=== PATIENT | female | born 1935 | race Caucasian/White ===

== ENCOUNTER → 2016-12-12 | Outpatient (CLI) | payer OTHER ==
[2014-10-08 08:06] VITALS: BP 138/88
--- NOTE | 2016-12-12 11:06 | RAD ---
HISTORY: Nontraumatic left hip pain Study: Left hip two views, AP pelvis Comparison: None Findings: A single frontal view of the pelvis demonstrates the pelvic ring to be intact. No evidence for acut e cortical disruption or dislocation of the hip can be observed. Frog leg views of the hip fails to demonstrate evidence for fracture or significant joint abnormality. Impression: 1. Negative exam. Reported By:
== END ==
LOC: RAD 10:43
PROVIDERS: ATTEND Specialist
DX: M25.552 Pain in left hip (principal)
CPT/HCPCS: 73501

== ENCOUNTER → 2017-01-06 | Outpatient (CLI) | payer OTHER ==
[2014-10-08 08:06] VITALS: BP 138/88
[2017-01-06 08:03] LABS: BASOPHILS % (AUTO) 0.7 % (0.2-1.0); EOSINOPHILS % (AUTO) 0.8 % (0.9-2.9); HEMATOCRIT 37.3 % (36.0-47.0); HEMOGLOBIN 12.7 g/dL (12.0-16.0); LYMPHOCYTES # (AUTO) 1.4 X10^3/uL (1.3-2.9); LYMPHOCYTES % (AUTO) 26.7 % (21.0-51.0); MEAN CORPUSCULAR HEMOGLOBIN 30.9 pg (27.0-34.0); MEAN CORPUSCULAR HGB CONC 34.1 g/dL (33.0-35.0); MEAN CORPUSCULAR VOLUME 90.5 fL (80.0-100.0); MEAN PLATELET VOLUME 8.5 fL (7.4-11.0); MONOCYTES # (AUTO) 0.4 x10^3/uL (0.3-0.8); NEUTROPHILS # (AUTO) 3.4 x10^3/uL (2.2-4.8); NEUTROPHILS % (AUTO) 63.8 % (42.0-75.0); PLATELET COUNT 156 X10^3/uL (150.0-450.0); RED BLOOD COUNT 4.12 X10^6/uL (3.5-5.4); RED CELL DISTRIBUTION WIDTH 12.9 % (11.6-16.5); WHITE BLOOD COUNT 5.3 X10^3/uL (3.6-10.0)
[2017-01-06 08:27] LABS: ALANINE AMINOTRANSFERASE 33 Units/L (12-78); ALBUMIN 3.6 g/dL (3.4-5.0); ALKALINE PHOSPHATASE 49 Units/L (46-116); AMYLASE 109 Units/L (25-115); ASPARTATE AMINO TRANSFERASE 28 Units/L (15-37); BLOOD UREA NITROGEN 11 mg/dL (7-18); CARBON DIOXIDE 32.8 mmol/L (21-32); CHLORIDE 107 mmol/L (98-107); CREATININE 1.01 mg/dL (0.55-1.02); GLUCOSE 88 mg/dL (65-99); LIPASE 310 Units/L (73-393); SODIUM 143 mmol/L (136-145); TOTAL PROTEIN 7.2 g/dL (6.4-8.2); eGFR BLACK RACES > 60 (>60); eGFR NON BLACK RACES 56 (>60)
== END ==
LOC: LAB 07:35
PROVIDERS: ATTEND Internal Medicine Gastroenterology
DX: R10.13 Epigastric pain (principal); R11.0 Nausea
CPT/HCPCS: 36415; 80053; 82150; 83690; 85025

== ENCOUNTER 2019-01-11 17:18 | Inpatient (IN) ==
[2019-01-11] MEDS ORDERED: VANCOMYCIN HCL 1 GM VIAL 1 G in D5W 250 ML IV 250 ML IV ONE (17:46)
[2019-01-11 18:03] LABS: BASOPHILS % (AUTO) 0.8 % (0.2-1.0); EOSINOPHILS % (AUTO) 0.1 % (0.9-2.9); HEMATOCRIT 33.6 % (36.0-47.0); HEMOGLOBIN 11.6 g/dL (12.0-16.0); LYMPHOCYTES # (AUTO) 1.4 X10^3/uL (1.3-2.9); LYMPHOCYTES % (AUTO) 27.5 % (21.0-51.0); MEAN CORPUSCULAR HGB CONC 34.5 g/dL (33.0-35.0); MEAN CORPUSCULAR VOLUME 89.8 fL (80.0-100.0); MEAN PLATELET VOLUME 8.3 fL (7.4-11.0); MONOCYTES # (AUTO) 0.4 x10^3/uL (0.3-0.8); MONOCYTES % (AUTO) 8.5 % (0.0-13.0); NEUTROPHILS # (AUTO) 3.3 x10^3/uL (2.2-4.8); NEUTROPHILS % (AUTO) 63.1 % (42.0-75.0); PLATELET COUNT 153 X10^3/uL (150.0-450.0); RED BLOOD COUNT 3.74 X10^6/uL (3.5-5.4); RED CELL DISTRIBUTION WIDTH 13.8 % (11.6-16.5); WHITE BLOOD COUNT 5.3 X10^3/uL (3.6-10.0)
[2019-01-11 18:13] VITALS: BMI 17.2
[2019-01-11 18:17] LABS: ALANINE AMINOTRANSFERASE 20 Units/L (12-78); ALBUMIN 3.8 g/dL (3.4-5.0); ALKALINE PHOSPHATASE 59 Units/L (46-116); ASPARTATE AMINO TRANSFERASE 29 Units/L (15-37); BLOOD UREA NITROGEN 15 mg/dL (7-18); CALCIUM 8.9 mg/dL (8.5-10.1); CARBON DIOXIDE 27.3 mmol/L (21-32); CHLORIDE 100 mmol/L (98-107); CREATININE 1.44 mg/dL (0.55-1.02); SODIUM 138 mmol/L (136-145); TOTAL PROTEIN 7.4 g/dL (6.4-8.2); eGFR NON BLACK RACES 37 (>60)
[2019-01-11] MEDS: PROTONIX TAB 40 MG PO SCH (18:34)
[2019-01-11] MEDS: LR 1000 ML IV 1,000 ML IV SCH (18:34)
[2019-01-11] MEDS: GENTAMICIN SULF (OPHTH) AFFEYE SCH ×2 (18:49→22:05)
[2019-01-11] MEDS ORDERED: KLOR-CON PO PRN (19:45)
[2019-01-11] MEDS ORDERED: POTASSIUM CHL 40 MEQ/NS 0.45% 500 ML IV PRN (19:45)
[2019-01-11] MEDS ORDERED: POTASSIUM CHLORIDE LIQ 20 MEQ UDC PO PRN (19:45)
[2019-01-11] MEDS ORDERED: K-RIDER 10 MEQ/NS 100 ML 10 MEQ/100 ML BAG IV PRN (19:45)
[2019-01-11] MEDS ORDERED: K-DUR TAB 20 MEQ PO PRN (19:45)
[2019-01-11] MEDS ORDERED: POTASSIUM CHL 60 MEQ/NS 0.45% 500 ML IV PRN (19:45)
[2019-01-11] MEDS ORDERED: MICRO K EXTEN CAP 10 MEQ PO PRN (19:45)
[2019-01-11] MEDS: COREG TAB 6.25 MG PO SCH (20:16)
[2019-01-11] MEDS: MAGNESIUM SULFATE 1 GRAM/100 mL PREMIX 1 GM/100 ML BAG IV PRN ×2 (20:20→21:30)
[2019-01-12] MEDS ORDERED: PHARMACY CONSULT - VANCOMYCIN XX SCH (02:00)
[2019-01-12] MEDS: LR 1000 ML IV 1,000 ML IV SCH ×3 (02:00→18:20)
[2019-01-12] MEDS: GENTAMICIN SULF (OPHTH) AFFEYE SCH ×6 (02:15→21:40)
[2019-01-12] MEDS: TYLENOL 500 MG TAB EXTRA STRENGTH PO PRN ×2 (02:30→16:51)
[2019-01-12 05:26] LABS: BASOPHILS % (AUTO) 0.7 % (0.2-1.0); EOSINOPHILS % (AUTO) 0.8 % (0.9-2.9); HEMATOCRIT 29.6 % (36.0-47.0); HEMOGLOBIN 10.2 g/dL (12.0-16.0); LYMPHOCYTES # (AUTO) 1.6 X10^3/uL (1.3-2.9); LYMPHOCYTES % (AUTO) 40.4 % (21.0-51.0); MEAN CORPUSCULAR HEMOGLOBIN 31.2 pg (27.0-34.0); MEAN CORPUSCULAR HGB CONC 34.4 g/dL (33.0-35.0); MEAN CORPUSCULAR VOLUME 90.7 fL (80.0-100.0); MEAN PLATELET VOLUME 9.1 fL (7.4-11.0); MONOCYTES # (AUTO) 0.5 x10^3/uL (0.3-0.8); MONOCYTES % (AUTO) 11.6 % (0.0-13.0); NEUTROPHILS # (AUTO) 1.8 x10^3/uL (2.2-4.8); NEUTROPHILS % (AUTO) 46.5 % (42.0-75.0); PLATELET COUNT 125 X10^3/uL (150.0-450.0); RED BLOOD COUNT 3.26 X10^6/uL (3.5-5.4); RED CELL DISTRIBUTION WIDTH 13.4 % (11.6-16.5); WHITE BLOOD COUNT 3.9 X10^3/uL (3.6-10.0)
[2019-01-12 06:01] LABS: ALANINE AMINOTRANSFERASE 18 Units/L (12-78); ALBUMIN 2.9 g/dL (3.4-5.0); ALKALINE PHOSPHATASE 45 Units/L (46-116); ASPARTATE AMINO TRANSFERASE 23 Units/L (15-37); BLOOD UREA NITROGEN 12 mg/dL (7-18); CALCIUM 8.2 mg/dL (8.5-10.1); CARBON DIOXIDE 25.4 mmol/L (21-32); CHLORIDE 107 mmol/L (98-107); COR CA(FOR HYPOALB) 9.1 mg/dL (8.5-10.1); MAGNESIUM 2.3 mg/dL (1.7-2.9); SODIUM 140 mmol/L (136-145); TOTAL PROTEIN 5.9 g/dL (6.4-8.2); eGFR NON BLACK RACES 45 (>60)
[2019-01-12] MEDS ORDERED: PHARMACY CONSULT - DOSE _____ XX SCH (08:00)
[2019-01-12] MEDS: COREG TAB 6.25 MG PO SCH ×2 (08:59→21:40)
[2019-01-12] MEDS: VANCOMYCIN HCL 500 MG VIAL 750 MG in NS 250 ML IV 250 ML IV SCH ×2 (09:00→21:40)
[2019-01-12] MEDS: PROTONIX TAB 40 MG PO SCH (09:00)
[2019-01-12] MEDS ORDERED: NORCO 5/325 MG TAB PO PRN (09:13)
[2019-01-12] MEDS ORDERED: COZAAR PO ONE (17:40)
[2019-01-13] MEDS: NORCO 5/325 MG TAB PO PRN ×2 (02:00→08:44)
[2019-01-13] MEDS: GENTAMICIN SULF (OPHTH) AFFEYE SCH ×6 (02:41→21:50)
[2019-01-13] MEDS: LR 1000 ML IV 1,000 ML IV SCH ×4 (04:42→17:41)
[2019-01-13 08:29] LABS: CREATININE 0.84 mg/dL (0.55-1.02); VANCOMYCIN,TROUGH 13.3 ug/mL (15-20)
[2019-01-13] MEDS ORDERED: PHARMACY COMMENT IV NR (08:30)
[2019-01-13] MEDS: COREG TAB 6.25 MG PO SCH ×2 (08:43→20:41)
[2019-01-13] MEDS: VANCOMYCIN HCL 500 MG VIAL 750 MG in NS 250 ML IV 250 ML IV SCH ×2 (08:43→20:48)
[2019-01-13] MEDS: PROTONIX TAB 40 MG PO SCH (08:43)
[2019-01-13] MEDS ORDERED: ZOFRAN INJ 4 MG VIAL ONE (10:21)
[2019-01-13] MEDS ORDERED: COZAAR ONE (10:21)
[2019-01-13] MEDS: ZOFRAN INJ 4 MG VIAL IVP PRN (10:22)
[2019-01-13] MEDS: COZAAR PO SCH (10:23)
[2019-01-14] MEDS: LR 1000 ML IV 1,000 ML IV SCH ×3 (00:43→11:03)
[2019-01-14] MEDS: GENTAMICIN SULF (OPHTH) AFFEYE SCH ×3 (02:24→11:03)
[2019-01-14] MEDS: COZAAR PO SCH (08:34)
[2019-01-14] MEDS: VANCOMYCIN HCL 500 MG VIAL 750 MG in NS 250 ML IV 250 ML IV SCH (08:34)
[2019-01-14] MEDS: PROTONIX TAB 40 MG PO SCH (08:34)
[2019-01-14] MEDS: COREG TAB 6.25 MG PO SCH (08:34)
[2019-01-14] MEDS ORDERED: COREG TAB 6.25 MG PO SCH (10:00)
[2019-01-14] MEDS: NORCO 5/325 MG TAB PO PRN (11:05)
[2019-01-14 16:34] VITALS: BP 138/70
== END 2019-01-14 11:20 | disposition home or self-care (01) | DRG 641 ==
LOC: ICU → OBSVTOIN 17:19 → MED/SURG 01-12 17:01
PROVIDERS: ADMIT Internal Medicine; ATTEND Obstetrics & Gynecology Obstetrics
DX: L03.213 Periorbital cellulitis; Z79.899 Other long term (current) drug therapy; E87.1 Hypo-osmolality and hyponatremia
CPT/HCPCS: 36415; 80053; 80202; 82565; 83735; 84132; 85025; 87070; 87075; 87205; A4222; J2405; J3370; J3475; J7050; J7060; J7120